=== PATIENT | male | born 1980 | race Caucasian/White ===

== ENCOUNTER 2022-10-09 13:42 | Inpatient (IN) | payer OTHER ==
[~2022-10-09] VITALS: Ht 180.3 cm; Wt 65.8 kg
[2022-10-09] MEDS ORDERED: LORAZEPAM 1 MG TABLET PO PRN ×10 (15:00→16:45)
[2022-10-09] MEDS ORDERED: ZOLPIDEM 5 MG TABLET PO PRN ×10 (15:00→16:45)
[2022-10-09 15:19] VITALS: BP 114/64; TEMP 98.2; O2SAT 98
[2022-10-09] MEDS ORDERED: MAG HYDROX/AL HYDROX/SIMETH 30 ML LIQUID UDC PO PRN (16:45)
[2022-10-09] MEDS ORDERED: ACETAMINOPHEN ES 500 MG TABLET PO PRN (16:45)
[2022-10-09] MEDS ORDERED: MAGNESIUM HYDROXIDE 30 ML LIQUID UDC PO PRN (16:45)
[2022-10-09] MEDS ORDERED: OLANZAPINE 5 MG TABLET PO SCH ×2 (17:00)
[2022-10-09 20:17] VITALS: BP 104/60; TEMP 98.4; O2SAT 99
[2022-10-10 11:31] VITALS: BP 114/78; TEMP 98.2; O2SAT 99
[2022-10-10 14:00] VITALS: BP 113/69; TEMP 98.1; O2SAT 100
[2022-10-10] MEDS ORDERED: OLANZAPINE 5 MG TABLET PO SCH (21:00)
[2022-10-11 05:19] VITALS: BP 108/56; TEMP 98.2; O2SAT 99
[2022-10-11 12:59] VITALS: BP 122/70; TEMP 98; O2SAT 99
[2022-10-11 16:33] VITALS: BP 112/62; TEMP 97.8; O2SAT 99
[2022-10-11 20:00] VITALS: BP 127/59; TEMP 97.9; O2SAT 98
[2022-10-12 11:57] VITALS: BP 125/88; TEMP 97.6; O2SAT 100
[2022-10-12 20:30] VITALS: BP 139/75; TEMP 98.3; O2SAT 94
[2022-10-13 11:47] VITALS: BP 114/71; TEMP 98; O2SAT 100
[2022-10-13 16:00] VITALS: BP 117/72; TEMP 97.9; O2SAT 100
[2022-10-13 21:20] VITALS: BP 116/76; TEMP 98.4; O2SAT 96
[2022-10-14] MEDS ORDERED: LORAZEPAM 1 MG TABLET PO PRN (15:00)
[2022-10-14 16:09] VITALS: BP 136/70; TEMP 98.2; O2SAT 95
[2022-10-14] MEDS: IBUPROFEN 600 MG TABLET PO PRN (21:59)
[2022-10-14] MEDS: ZOLPIDEM 5 MG TABLET PO PRN (22:00)
[2022-10-15 16:18] VITALS: BP 130/77; TEMP 98.7; O2SAT 100
[2022-10-15 20:00] VITALS: BP 115/77; TEMP 98.3; O2SAT 99
[2022-10-15] MEDS: ZOLPIDEM 5 MG TABLET PO PRN (22:28)
[2022-10-16 16:44] VITALS: BP 118/68; TEMP 98.3; O2SAT 95
[2022-10-16 21:27] VITALS: BP 121/71; TEMP 98; O2SAT 100
[2022-10-16] MEDS: ZOLPIDEM 5 MG TABLET PO PRN (21:31)
[2022-10-17 14:09] VITALS: BP 116/79; TEMP 98.6
[2022-10-17 20:00] VITALS: BP 120/73; TEMP 98.4; O2SAT 96
[2022-10-17] MEDS: ZOLPIDEM 5 MG TABLET PO PRN (21:34)
[2022-10-17] MEDS: IBUPROFEN 600 MG TABLET PO PRN (21:42)
[2022-10-18 07:52] VITALS: BP 124/68; TEMP 98.6; O2SAT 99
[2022-10-18 20:00] VITALS: BP 115/77; TEMP 98.8; O2SAT 100
[2022-10-18] MEDS: ZOLPIDEM 5 MG TABLET PO PRN (21:36)
[2022-10-19 11:32] VITALS: BP 113/75; TEMP 98.1; O2SAT 95
[2022-10-19] MEDS: IBUPROFEN 600 MG TABLET PO PRN (16:41)
[2022-10-19 20:15] VITALS: BP 137/75; TEMP 97.6; O2SAT 97
[2022-10-19] MEDS: ZOLPIDEM 5 MG TABLET PO PRN (21:30)
[2022-10-20 07:46] VITALS: BP 119/71; TEMP 98.2; O2SAT 99
[2022-10-20 20:30] VITALS: BP 111/73; TEMP 98.6; O2SAT 97
[2022-10-21] MEDS ORDERED: LORAZEPAM 1 MG TABLET PO PRN ×2 (15:00)
[2022-10-21 15:22] VITALS: BP 107/75; TEMP 98; O2SAT 100
[2022-10-22 12:00] VITALS: BP 121/62; TEMP 97.5; O2SAT 97
[2022-10-22 16:00] VITALS: BP 110/76; TEMP 97.8; O2SAT 99
[2022-10-22] MEDS: ZOLPIDEM 5 MG TABLET PO PRN (21:45)
[2022-10-23 08:00] VITALS: BP 109/62; TEMP 97.8; O2SAT 100
[2022-10-23 20:38] VITALS: BP 119/73; TEMP 98.2; O2SAT 98
[2022-10-23] MEDS: ZOLPIDEM 5 MG TABLET PO PRN (21:30)
[2022-10-24 12:00] VITALS: BP 110/70; TEMP 98; O2SAT 99
[2022-10-24 16:03] VITALS: BP 109/70; TEMP 98; O2SAT 99
[2022-10-24] MEDS: ZOLPIDEM 5 MG TABLET PO PRN (21:25)
[2022-10-24 21:29] VITALS: BP 148/99; TEMP 98.2; O2SAT 99
[2022-10-25 11:29] VITALS: BP 120/78; TEMP 98.2; O2SAT 99
[2022-10-25 15:29] VITALS: BP 108/65; TEMP 98; O2SAT 100
[2022-10-25 20:00] VITALS: BP 110/70; TEMP 98.2; O2SAT 98
[2022-10-26 07:42] VITALS: BP 104/67; TEMP 98.2; O2SAT 99
[2022-10-26 20:00] VITALS: BP 133/72; TEMP 98.2; O2SAT 99
[2022-10-26] MEDS: ZOLPIDEM 5 MG TABLET PO PRN (21:29)
[2022-10-27 07:37] VITALS: BP 117/69; TEMP 98.6; O2SAT 100
[2022-10-27 19:51] VITALS: BP 118/74; TEMP 98.6; O2SAT 100
[2022-10-28 11:50] VITALS: BP 109/72; TEMP 97.7; O2SAT 100
[2022-10-28] MEDS ORDERED: LORAZEPAM 1 MG TABLET PO PRN (15:00)
[2022-10-28] MEDS ORDERED: ZOLPIDEM 5 MG TABLET PO PRN (15:00)
[2022-10-28 15:55] VITALS: BP 115/68; TEMP 97.9; O2SAT 100
[2022-10-28 20:00] VITALS: BP 126/68; TEMP 98.4; O2SAT 100
[2022-10-28] MEDS: ZOLPIDEM 5 MG TABLET PO PRN (21:46)
[2022-10-29 12:11] VITALS: BP 111/73; TEMP 97.7; O2SAT 100
[2022-10-29 20:00] VITALS: BP 102/64; TEMP 98.2; O2SAT 100
[2022-10-29] MEDS: ZOLPIDEM 5 MG TABLET PO PRN (22:27)
[2022-10-30 12:00] VITALS: BP 109/70; TEMP 97.7; O2SAT 100
[2022-10-30 16:00] VITALS: BP 117/68; TEMP 97.6; O2SAT 100
[2022-10-30 20:33] VITALS: BP 121/73; TEMP 98.1; O2SAT 98
[2022-10-31 11:53] VITALS: BP 106/68; TEMP 98.5; O2SAT 96
[2022-10-31 20:23] VITALS: BP 116/72; TEMP 98.5; O2SAT 96
[2022-11-01 07:45] VITALS: BP 114/62; TEMP 98.2; O2SAT 98
[2022-11-01 11:09] VITALS: BP 115/59; TEMP 98.2; O2SAT 96
[2022-11-01 15:25] VITALS: BP 117/71; TEMP 98.4; O2SAT 98
[2022-11-01 20:00] VITALS: BP 118/70; TEMP 98.6; O2SAT 97
[2022-11-02 07:49] VITALS: BP 121/68; TEMP 97.8; O2SAT 99
[2022-11-02 19:48] VITALS: BP 128/74; TEMP 97.9; O2SAT 99
[2022-11-03 08:00] VITALS: BP 111/68; TEMP 97.7; O2SAT 98
[2022-11-03 20:00] VITALS: BP 120/67; TEMP 97.4; O2SAT 97
[2022-11-04 11:41] VITALS: BP 123/71; TEMP 98.4; O2SAT 98
[2022-11-04 11:45] VITALS: BP 139/68; TEMP 98.7; O2SAT 100
[2022-11-04] MEDS ORDERED: LORAZEPAM 1 MG TABLET PO PRN (15:00)
[2022-11-04 16:03] VITALS: BP 112/71; TEMP 98.2; O2SAT 100
[2022-11-05 11:33] VITALS: BP 114/75; TEMP 98.2; O2SAT 97
[2022-11-05 17:16] VITALS: BP 120/80; TEMP 98.2; O2SAT 97
[2022-11-05 20:00] VITALS: BP 120/80; TEMP 98.3; O2SAT 99
[2022-11-05] MEDS: ZOLPIDEM 5 MG TABLET PO PRN (21:57)
[2022-11-05] MEDS: IBUPROFEN 600 MG TABLET PO PRN (21:57)
[2022-11-06 08:00] VITALS: BP 122/86; TEMP 98; O2SAT 99
[2022-11-06 11:36] VITALS: BP 123/84; TEMP 97.9; O2SAT 99
[2022-11-06 20:00] VITALS: BP 116/69; TEMP 98.1; O2SAT 98
[2022-11-07 08:00] VITALS: BP 117/70; TEMP 98; O2SAT 99
[2022-11-07 12:00] VITALS: BP 110/75; TEMP 97.9; O2SAT 100
[2022-11-07 15:47] VITALS: BP 119/85; TEMP 97.7; O2SAT 100
[2022-11-07 19:50] VITALS: BP 123/76; TEMP 98.1; O2SAT 100
[2022-11-08 12:45] VITALS: BP 122/79; TEMP 98.3; O2SAT 100
[2022-11-08 15:29] VITALS: BP 115/65; TEMP 98.4; O2SAT 100
[2022-11-08 20:00] VITALS: BP 131/69; TEMP 98.1; O2SAT 100
[2022-11-08] MEDS: IBUPROFEN 600 MG TABLET PO PRN (20:24)
[2022-11-08] MEDS: ZOLPIDEM 5 MG TABLET PO PRN (20:24)
[2022-11-09 11:08] VITALS: BP 115/71; TEMP 97.8; O2SAT 97
[2022-11-09 15:12] VITALS: BP 114/65; TEMP 98.2; O2SAT 97
[2022-11-09] MEDS: ZOLPIDEM 5 MG TABLET PO PRN (21:16)
[2022-11-09] MEDS: IBUPROFEN 600 MG TABLET PO PRN (21:19)
[2022-11-10 11:04] VITALS: BP 118/69; TEMP 98.2; O2SAT 99
[2022-11-10 15:10] VITALS: BP 115/67; TEMP 97.6; O2SAT 99
[2022-11-10 20:32] VITALS: BP 115/67; TEMP 97.6; O2SAT 99
== END 2022-11-11 07:20 | disposition home or self-care (01) | DRG 951 ==
LOC: EDBD → TELE3 14:52 → MEDSURG3 15:05
PROVIDERS: ADMIT Psychiatry & Neurology Psychiatry; ATTEND Psychiatry & Neurology Psychiatry
DX: Z00.6 Encounter for examination for normal comparison and control in clinical research program (principal); F20.9 Schizophrenia, unspecified
CPT/HCPCS: A4663; G0378